=== PATIENT | female | born 1990 | race Caucasian/White ===

== ENCOUNTER 2017-10-27 13:03 | Emergency (ER) | payer MEDICAID ==
[~2017-10-27] VITALS: Ht 165.1 cm; Wt 86.4 kg
[~2017-10-27 13:03] MED LIST: IBUP-1223 PO; OXYC-302 PO; PREN1TAB60 PO
[2017-10-27 13:05] VITALS: BP 111/75
== END 2017-10-27 15:47 | disposition home or self-care (01) ==
LOC: ED 15:41
DX: S93.492A Sprain of other ligament of left ankle, initial encounter (principal); W18.30XA Fall on same level, unspecified, initial encounter; Y93.01 Activity, walking, marching and hiking; Y92.89 Other specified places as the place of occurrence of the external cause; Y99.8 Other external cause status
CPT/HCPCS: 99284

== ENCOUNTER 2018-03-09 09:24 | Emergency (ER) | payer MEDICAID ==
[~2018-03-09] VITALS: Ht 165.1 cm; Wt 97.9 kg
[2018-03-09] MEDS ORDERED: SODIUM CHLORIDE FLUSH 10ML SYR IVF ONE (10:00)
[2018-03-09] MEDS ORDERED: morphine SULFATE 10 MG/ML, 1ML IVPush ONE (10:00)
[2018-03-09] MEDS ORDERED: ONDANSETRON ODT 4 MG PO ONE (10:00)
[2018-03-09 10:25] LABS: BASOPHILS # (AUTO) 0.05 x10^3/uL (0-0.1); BASOPHILS % (AUTO) 1 % (0-1); EOSINOPHILS # (AUTO) 0.08 x10^3/uL (0-0.4); EOSINOPHILS % (AUTO) 1 % (1-7); LYMPHOCYTES # (AUTO) 3.24 x10^3/uL (1-3.4); LYMPHOCYTES % (AUTO) 41 % (22-44); MD NO; MEAN CORPUSCULAR HEMOGLOBIN 23.9 pg (27.0-34.8); MEAN CORPUSCULAR HGB CONC 32.3 g/dL (32.4-35.8); MEAN CORPUSCULAR VOLUME 74.1 fL (80-100); MEAN PLATELET VOLUME 9.3 fL (7.4-10.4); MONOCYTES % (AUTO) 6 % (2-9); NEUTROPHILS # (AUTO) 4.08 x10^3/uL (1.8-6.8); NEUTROPHILS % (AUTO) 51 % (42-75); PLATELET COUNT 331 x10^3/uL (130-400); RED BLOOD COUNT 5.52 x10^6/uL (3.82-5.3); RED CELL DISTRIBUTION WIDTH 16.5 % (9.6-15.2)
[2018-03-09 10:37] LABS: ALBUMIN 3.8 g/dL (3.4-5.0); ANION GAP 5 mmol/L (5-15); CALCIUM 8.9 mg/dL (8.5-10.1); CHLORIDE 111 mmol/L (98-107); CREATININE 0.99 mg/dL (0.55-1.02)
[2018-03-09] MEDS ORDERED: ONDANSETRON ODT 4 MG ONE (10:43)
[2018-03-09 11:49] LABS: MICROSCOPIC NOT IND
[2018-03-09 11:53] LABS: CULTURE INDICATED? NO
[2018-03-09 13:24] VITALS: BP 105/62
== END 2018-03-09 14:10 | disposition home or self-care (01) ==
LOC: ED 10:18
DX: G44.219 Episodic tension-type headache, not intractable (principal); N93.8 Other specified abnormal uterine and vaginal bleeding
CPT/HCPCS: 36415; 70551; 76830; 80048; 81003; 82040; 84146; 84703; 85025; 86140; 99285